=== PATIENT | female | born 1980 ===

== ENCOUNTER 2017-07-22 19:45 | Emergency (ER) | payer BC ==
[2017-07-22 20:01] VITALS: BP 110/74; PULSE 65; RESP 16; TEMP 98.2; O2SAT 100
--- NOTE | 2017-07-22 22:15 | ED PDOC ---
"HPI: Female Pain Time Seen by Provider: 07/22/17 20:43 Chief Complaint (Nursing): Abdominal Pain Chief Complaint (Provider): pelvic pain History Per: Patient History/Exam Limitations: no limitations Associated Symptoms: denies: Fever, Chills, Nausea, Vomiting, Diarrhea, Loss Of Appetite, Back Pain, Chest Pain, Constipation, Urinary Symptoms Additional Complaint(s): 36yo F in ED for eval of pelvic left sided cramping x 1 day two days after slip and fall onto back on wet wooden floor-pt is 19weeks . first . denies: vaignal bleeding, nausea vomiting back pain. pt has a hx of PE and i taking Lovenox daily. PT has obgyn appoint for of this week. Abnormal Vaginal Bleeding: No Past Medical History Reviewed: Historical Data, Nursing Documentation, Vital Signs Vital Signs: Last Vital Signs Temp 98.2 F 07/22/17 19:58 Pulse 65 07/22/17 19:58 Resp 16 07/22/17 19:58 BP 110/74 07/22/17 19:58 Pulse Ox 100 07/22/17 19:58 - Medical History PMH: No Chronic Diseases - Family History Family History: States: CAD, Hypertension - Home Medications Home Medications: Ambulatory Orders Medication Instructions Recorded ALPRAZolam [Xanax] 0.25 mg PO Q8 11/22/15 Rivaroxaban [Xarelto] 20 mg PO QD5 #0 tab 11/23/15 - Allergies Allergies/Adverse Reactions: Allergies Allergy/AdvReac Type Severity Reaction Status Date / Time No Known Allergies Allergy Verified 11/22/15 19:19 Review of Systems ROS Statement: Except As Marked, All Systems Reviewed And Found Negative Genitourinary Female: Positive for: Pelvic Pain. Negative for: Vaginal Discharge, Vaginal Bleeding Physical Exam - Reviewed Nursing Documentation Reviewed: Yes Vital Signs Reviewed: Yes - Physical Exam Appears: Positive for: Well, Non-toxic, No Acute Distress Skin: Positive for: Normal Color, Warm, DRY Cardiovascular/Chest: Positive for: Regular Rate, Rhythm Respiratory: Positive for: CNT, Normal Breath Sounds Gastrointestinal/Abdominal: Positive for: Normal Exam, Bowel Sounds, Soft. Negative for: Tenderness Back: Negative for: L CVA Tenderness, R CVA Tenderness Extremity: Positive for: Normal ROM Neurologic/Psych: Positive for: Alert, Oriented - ECG O2 Sat by Pulse Oximetry: 100 - Progress ED Course And Treament: pt most liekly with pain to abdominal muscle or round ligament pain nan get US US: IMPRESSION: Single intrauterine gestation with an approximate gestational age of 20 weeks and 1 day. cardiac activity is identified. The cervix is closed. Despite prolonged interrogation, neither ovary was visualized. JASMINA WERNER | Preliminary Radiology Report [employer] (QA) DISCREPANCY? If there is a discrepancy between the preliminary and final interpretation, please notify [facility] via [email or web address]. If you do not have access to our QA portal, call our QA team at [phone] CONFIDENTIALITY STATEMENT This report is intended only for the use of the referring physician, and only in accordance with law, If you received this in error, call [phone] Page 2 of 2 Thank you for allowing us to participate in the care of your patient. Dictated and Authenticated by: Kaela Horan MD 07/22/2017 10:15 PM Eastern Time ([place] & [place]) Medical Decision Making Medical Decision Making: US normal advised to have obgyn f.u Disposition - Clinical Impression Clinical Impression: Abdominal pain during - Patient ED Disposition Is Patient to be Admitted: No Counseled Patient/Family Regarding: Studies Performed, Diagnosis, Need For Followup - Disposition Disposition: Routine/Home Disposition Time: 22:17 Condition: STABLE Instructions: Abdominal Pain in (ED)"
--- NOTE | 2017-07-23 10:11 | US ---
PROCEDURE: Second trimester ultrasound HISTORY: Abdominal pain and cramping. COMPARISON: None available. TECHNIQUE: Standard protocol for this study/examination. FINDINGS: Cephalic presentation. Anterior Placenta. No evidence of abruption or previa Gestational age derived from LMP 19 weeks 4 days corresponding [facility] 12/12/2017. Gestational age derived from the following biometric parameters 20 weeks 1 day corresponding [facility] 12/08/2017. Biparietal diameter 4.76 cm Head [id number] cm Abdominal circumference 13.21 cm Femur length 3.4 cm Estimated weight 313 g Calculated cardiac rate 142 beats per min. Closed cervix measuring 5.5 cm IMPRESSION: Twenty weeks 1 day live intrauterine gestation. Gestational concordance documented. Concordant results (preliminary interpretation) provided by [facility]. Procedure Completed: 21:46 Preliminary ([facility]) Report: Dictated and Authenticated: 22:15 Final Interpretation: 10:09 July 23, 2017.
== END 2017-07-22 22:39 | disposition home or self-care (01) ==
LOC: H.ER 19:45
DX: O26.891 Other specified pregnancy related conditions, first trimester (principal); Z36.9 Encounter for antenatal screening, unspecified